=== PATIENT | male | born 1960 | race Caucasian/White ===

== ENCOUNTER 2024-10-31 13:31 | Emergency (ER) | payer OTHER, SELFPAY ==
[2024-10-31 13:38] VITALS: BP 161/88; PULSE 98; TEMP 36.8; O2SAT 98; BMI 25.7
--- OUTSIDE RECORDS SUMMARY | 2024-10-31 13:41 | XMS_ITS | Encounter Summary ---
Author Organization [facility] Address [address] [place] [address] Care Team Providers Care Field Observer Name Role Phone Alvaro Noriega MD Primary Care Provider [phone] Encounter Details Date Type Department Care Team (Late Contact Info) Description 11/24/2023 Abstract [facility] [address] [place] [address] [place] [phone] Alvaro Noriega MD [address] [place] [address] [place], [place] [id number] Social History Tobacco Use Types Packs/Day Years Used Date Smoking Tobacco: Every Day Cigarettes Smokeless Tobacco: Never Sex and Gender Information Value Date Recorded Sex Assigned at Not on file Legal Sex Male 6:46 PM EDT Gender Identity Not on file Sexual Orientation Not on file documented as of this encounter Plan of Treatment Upcoming Encounters Date Type Department Care Team (Late Contact Info) Description 11/05/2024 10:50 AM EDT Office [facility] [address] [place] [address] [place] [address] Letitia Aj MD [address] [place] [address] [place] [address] 12/18/2024 2:30 PM EDT Clinical Support [facility] [address] [place] [address] [place] [phone] Saira Murillo, [facility] [address] [facility] [place] [address] documented as of this encounter Visit Diagnoses Not on filedocumented in this encounter Care Teams Field Observer Relationship Specialty Start Date End Date Alvaro Noriega MD [address] [address] PCP - General Internal Medicine 07/12/22 documented as of this encounter
--- OUTSIDE RECORDS SUMMARY | 2024-10-31 13:41 | XMS_ITS | Clinical Summary ---
Author Organization [facility] Address [address] [place] [address] Care Team Providers Care Ship Fastener Name Role Phone Alvaro Noriega MD Primary Care Provider [phone] Allergies Active Allergy Reactions Criticality Noted Date Comments Penicillin G Unknown 11/09/2022 Medications sildenafil (Viagra) 100 MG tabletIndication s:Impotence of organic origin Take 1 tablet (100 mg) by mouth if needed for erectile dysfunction. 10 tablet 11 11/17/19 23 Active lisinopril 30 MG tabletIndication s:Essential (primary) hypertension Take 1 tablet (30 mg) by mouth Daily 100 tablet 3 02/26/20 24 Active diazePAM (Valium) 10 MG tablet TAKE 1 TABLET BY MOUTH 2 HOURS PRIOR TO THE PROCEDURE 10/20/19 25 Active albuterol HFA 90 mcg/act inhalerIndicatio ns:Chronic obstructive pulmonary disease, unspecified (HCC) INHALE 2 PUFFS EVERY 4 HOURS IF NEEDED FOR WHEEZING. 18 g 3 10/30/19 25 Active albuterol HFA 90 mcg/act inhalerIndicatio ns:Chronic obstructive pulmonary disease, unspecified (HCC) Inhale 2 puffs every 4 (four) hours if needed for wheezing 18 g 3 06/11/19 25 025 Discontinued Active Problems Problem Noted Date Diagnosed Date Alcoholism 05/22/2024 Routine health maintenance 05/22/2024 Chronic cholecystitis 11/27/2023 Fatty liver 11/27/2023 Elevated liver enzymes 11/27/2023 Bilateral hearing loss 11/16/2022 Benign essential hypertension 11/09/2022 Bursopathy, unspecified 11/09/2022 Calculus of gallbladder 11/09/2022 Chronic obstructive pulmonary disease 11/09/2022 Hyponatremia 11/09/2022 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 110 [place] [address] Alvaro Noriega MD Chronic obstructive pulmonary disease, unspecified (HCC) 10/07/2024 10:30 AM EDT Office Visit [facility] [address] [facility] 130 [place] [address] Letitia Aj MD Vertigo (Primary Dx); Asymmetric SNHL (sensorineural hearing loss); Right-sided tinnitus; Claustrophobia 10/07/2024 Bamboo flowsheet [facility] [address] [facility] [address] [place] [address] Letitia Aj MD 10/07/2024 Travel 10/02/2024 10:45 AM EDT Clinical Support [facility] [address] [place] [address] [address] [place] [address] Saira Murillo CCC-A Sensorineural hearing loss (SNHL) of both ears (Primary Dx); Tinnitus, bilateral 10/02/2024 Bamboo flowsheet [facility] [address] [facility] [address] [place] [address] Saira Murillo CCC-A from Last 3 Months Immunizations Immunization Administration Dates Next Due Influenza, injectable, quadrivalent, preservativ e free 02/14/2022 SARS-COV-2 (COVID-19) vaccin e, mRNA, spike protein, LNP, bivalent, preservative free, 30 mcg/0.3 mL dose, jordan-sucrose formulation 02/14/2022 Family History Medical History Relation Name Comments Cancer Mother Hypertension Mother Relation Name Status Comments Mother Social History Tobacco Use Types Packs/Day Years Used Date Smoking Tobacco: Every Day Cigarettes Smokeless Tobacco: Never Tobacco Cessation:Ready to Q uit: Not Asked; Counseling Given: Not Answered Alcohol Use Standard Drinks/Week Comments Yes 0 (1 standard drink = 0.6 oz pur e alcohol) occ PHQ-2 Answer Date Recorded Patient Health Questionnaire-2 Score 0 07/24/2024 Sex and Gender Information Value Date Recorded Sex Assigned at Not on file Legal Sex Male 6:46 PM EDT Gender Identity Not on file Sexual Orientation Not on file Last Filed Vital Signs Vital Sign Reading Time Taken Comments Blood Pressure 132/77 10/07/2024 10:35 AM EDT Pulse 81 07/24/2024 8:51 AM EDT Temperature - - Respiratory Rate - - Oxygen Saturation 99% 07/24/2024 8:51 AM EDT Inhaled Oxygen Concentration - - Weight 78.9 kg (174 lb) 10/07/2024 10:35 AM EDT Height 177.8 cm (5' 10 ) 10/07/2024 10:35 AM EDT Body Mass Index 24.97 10/07/2024 10:35 AM EDT Plan of Treatment Upcoming Encounters Date Type Department Care Team (Late st Contact Info) Description 11/05/2024 10:50 AM EDT Office Visit [facility] [address] [facility] 130 [place] [address] Letitia Aj MD [address] [facility] 130 [place] [address] 12/18/2024 2:30 PM EDT Clinical Support [facility] [address] [facility] 130 [place] [address] Saira Murillo, [facility] [address] [place] [address] Health Maintenance Due Date Last Done Comments CT Colonography 1962 Colonoscopy 1962 FIT 1962 FOBT 1962 Sigmoidoscopy 1962 Colorectal Cancer Screening 10/15/2023 FIT-DNA 10/15/2023 10/14/2020 Influenza Vaccine (#1) 2024 02/14/2022 Procedures Procedure Name Priority Date/Time Associated Diagnosis Comments AUDITORY FUNCTION TESTS Routine 10/02/2024 1:52 PM EDT LAB COLOGUARD COLON CANCER SCREEN Routine 10/14/2020 from Last 3 Months or Most Recently Relevant to Health Maintenance Results * Auditory function tests (10/02/2024 1:52 PM EDT) Narrative Saira Murillo, CCC-A - 10/02/2024 1:52 PM EDT Right Ear: Mild to severe sensorineural hearing loss Left Ear: Mild to moderate sensorineural hearing loss us Saira Murillo CCC-A AUDIOLOGY SERVICES ORDERA BLES Final Result * Cologuard?? colon cancer screening (10/14/2020) COLOGUARD RESULT REPORTABLE Cancelled - Order Not Applicable [facility] 10/14/2020 us [facility] MOLECULAR DIAGNOSTICS LISSET BENITEZ Final Result [facility] from Last 3 Months or Most Recently Relevant to Health Maintenance Insurance [employer] Care Teams Ship Fastener Relationship Specialty Start Date End Date Alvaro Noriega MD [address] [place] [phone] PCP - General Internal Medicine 07/12/22
--- OUTSIDE RECORDS SUMMARY | 2024-10-31 13:41 | XMS_ITS | Encounter Summary ---
Author Organization [facility] Address [address] [place] [address] Care Team Providers Care Dolphin Trainer Name Role Phone Alvaro Noriega MD Primary Care Provider Encounter Details Date Type Department Care Team (Late Contact Info) Description 10/05/2023 Orders Only [facility] [address] [facility] 110 [place] [phone] Adina Polanco LPN [address] [place] [address] Mid back pain; Chronic bilateral low back pain with right-sided sciatica Social History Tobacco Use Types Packs/Day Years Used Date Smoking Tobacco: Never Assessed Sex and Gender Information Value Date Recorded Sex Assigned at Not on file Legal Sex Male 6:46 PM EDT Gender Identity Not on file Sexual Orientation Not on file documented as of this encounter Plan of Treatment Upcoming Encounters Date Type Department Care Team (Late Contact Info) Description 11/05/2024 10:50 AM EDT Office Visit [facility] [address] [place] [address] [place] [address] Letitia Aj MD [address] [place] [place] [address] 12/18/2024 2:30 PM EDT Clinical Support [facility] [address] [place] [address] [place] [address] Saira Murillo, [facility] [address] [place] [address] documented as of this encounter Visit Diagnoses Diagnosis Mid back pain Chronic bilateral low back pain with right-sided sciatica documented in this encounter Care Teams Dolphin Trainer Relationship Specialty Start Date End Date Alvaro Noriega MD [address] [place] [address] PCP - General Internal Medicine 07/12/22 documented as of this encounter
--- OUTSIDE RECORDS SUMMARY | 2024-10-31 13:41 | XMS_ITS | Clinical Summary ---
Author Organization [employer] Address [id number] [address] [place] [address] Care Team Providers Care E Commerce Marketing Analyst Name Role Phone Alvaro Noriega MD Primary Care Provider [phone] Allergies Active Allergy Reactions Criticality Noted Date Comments Penicillins Itching,Rash Low 01/09/2017 Medications lisinopril (PRINIVIL,ZESTRI L) 30 mg tablet Take 30 mg by mouth daily. Active amLODIPine (NORVASC) 5 mg tablet Take 5 mg by mouth daily. Active diazePAM (VALIUM) 10 mg tablet Take 10 mg by mouth daily. Active tiZANidine (ZANAFLEX) 4 mg tablet Take 4 mg by mouth daily. Active albuterol (PROVENTIL HFA;VENTOLIN HFA) 90 mcg/actuation inhaler Inhale 2 puffs every 6 (six) hours as needed for wheezing. Active Active Problems No known active problems Family History Medical History Relation Name Comments Cancer Father Cancer Mother Relation Name Status Comments Father Mother Social History Tobacco Use Types Packs/Day Years Used Date Smoking Tobacco: Every Day Smokeless Tobacco: Never Alcohol Use Standard Drinks/Week Comments Yes 0 (1 standard drink = 0.6 oz pur e alcohol) 12 Childcare Answer Date Recorded Childcare Unknown 08/16/2018 Employment Answer Date Recorded Employment Unknown 08/16/2018 Hunger Screening Answer Date Recorded Within the past 12 months we worried whether our food would run out before we got money to buy more. Never True 11/20/2023 Within the past 12 months th e food we bought just didn't last and we didn't have money to get more. Never True 11/20/2023 Purpose - Life Answer Date Recorded Purpose and direction in life Unknown Sex and Gender Information Value Date Recorded Sex Assigned at Not on file Legal Sex Male 1:59 PM EDT Gender Identity Not on file Sexual Orientation Not on file Last Filed Vital Signs Vital Sign Reading Time Taken Comments Blood Pressure 159/126 11/20/2023 9:20 PM EDT Pulse 83 11/20/2023 9:39 PM EDT Temperature 36.7 C (98.1 F) 11/20/2023 6:29 PM EDT Respiratory Rate 18 11/20/2023 9:39 PM EDT Oxygen Saturation 99% 11/20/2023 9:39 PM EDT Inhaled Oxygen Concentration - - Weight 78.9 kg (174 lb) 11/20/2023 6:29 PM EDT Height 175.3 cm (5' 9 ) 11/20/2023 6:29 PM EDT Body Mass Index 25.7 11/20/2023 6:29 PM EDT Plan of Treatment Health Maintenance Due Date Last Done Comments Depression Screening 1974 Tobacco Screening 1974 Adult BMI Follow Up Plan 1980 DTaP,Tdap and Td Vaccines (1 - Tdap) 1981 Zoster (Shingles) Vaccine (1 of 2) 2012 COVID-19 Vaccine (5 - 2023-2 5 season) 2023 02/14/2022, 03/08/2021, 07/14/2020, Additional history exists Influenza Vaccine 11/04/2024 02/14/2022 Adult BMI Screening 11/19/2024 11/20/2023 Medical Devices Not on file Insurance [facility] [employer] Care Teams E Commerce Marketing Analyst Relationship Specialty Start Date End Date Alvaro Noriega MD [address] [phone] PCP - General Internal Medicine 01/04/17
--- OUTSIDE RECORDS SUMMARY | 2024-10-31 13:41 | XMS_ITS | Encounter Summary ---
Author Organization [facility] Address [address] [place] [address] Care Team Providers Care Simplex Operator Name Role Phone Alvaro Noriega MD Primary Care Provider [phone] Reason for Visit * Reason Comments Med Refill Encounter Details Date Type Department Care Team (Late Contact Info) Description 10/29/2024 Refill [facility] [address] [facility] 110 [place] [address] Alvaro Noriega MD [address] [facility] 110 [place], [place] [phone] Chronic obstructive pulmonary disease, unspecified (HCC) Social History Tobacco Use Types Packs/Day Years Used Date Smoking Tobacco: Every Day Cigarettes Smokeless Tobacco: Never Alcohol Use Standard Drinks/Week [...] Visit [facility] [address] [place] [address] [place] [address] Letitia Aj MD [address] [place] [address] [place], [place] [phone] 12/18/2024 2:30 PM EDT Clinical Support [facility] [address] [place] [address] [place] [address] Saira Murillo, [facility] [address] [place] [address] documented as of this encounter Visit Diagnoses Diagnosis Chronic obstructive pulmonary disease, unspecified (HCC) documented in this encounter Care Teams Simplex Operator Relationship Specialty Start Date End Date Alvaro Noriega MD [address] [facility] [address] [place] [address] PCP - General Internal Medicine 07/12/22 documented as of this encounter
--- OUTSIDE RECORDS SUMMARY | 2024-10-31 13:41 | XMS_ITS | Encounter Summary ---
Author Organization [facility] Address [address] [place] [address] Care Team Providers Care Digital Sales Manager Name Role Phone Alvaro Noriega MD Primary Care Provider [phone] Encounter Details Date Type Department Care Team (Late Contact Info) Description 11/10/2022 Abstract [facility] [address] [facility] 110 [place] [phone] Alvrao Noriega MD [address] [place] [address] [place], [place] [phone] Social History Tobacco Use Types Packs/Day Years Used Date Smoking Tobacco: Never Assessed Sex and Gender Information Value Date Recorded Sex Assigned at Not on file Legal Sex Male 6:46 PM EDT Gender Identity Not on file Sexual Orientation Not on file documented as of this encounter Plan of Treatment Upcoming Encounters Date Type Department Care Team ([facility] Contact Info) Description 11/05/2024 10:50 AM EDT Office Visit [facility] [address] [place] [place] [address] Letitia Aj MD [address] [place] [address] 12/18/2024 2:30 PM EDT Clinical Support [facility] [address] [place] [place] [address] Saira Murillo, [facility] [address] [place] [place] [address] documented as of this encounter Visit Diagnoses Not on filedocumented in this encounter Care Teams Digital Sales Manager Relationship Specialty Start Date End Date Alvaro Noriega MD [address] [address] PCP - General Internal Medicine 07/12/22 documented as of this encounter
--- OUTSIDE RECORDS SUMMARY | 2024-10-31 13:41 | XMS_ITS | Encounter Summary ---
Author Organization [employer] Address [id number] [address] [place] [address] Care Team Providers Care Lead Manufacturing Engineering Tech Name Role Phone Alvaro Noriega MD Primary Care Provider [phone] Encounter Details Date Type Department Care Team ([facility] st Contact Info) Description 01/12/2024 Orders Only [employer] [address] [place] [phone] Transcribe, Orders Support User Pain (Primary Dx) Social History Tobacco Use Types Packs/Day Years [...] as of this encounter Plan of Treatment Not on file documented as of this encounter Results * Ultrasound abdomen limited (11/20/2023 10:20 AM EDT) us Scanning Provider External IMG US ORDERABLES Fin al Result documented in this encounter Visit Diagnoses Diagnosis Pain- Primary Generalized pain documented in this encounter Care Teams Lead Manufacturing Engineering Tech Relationship Specialty Start Date End Date Alvaro Noriega MD [address] [facility], [facility] 110 [place] [address] PCP - General Internal Medicine 01/04/17 documented as of this encounter
--- OUTSIDE RECORDS SUMMARY | 2024-10-31 13:41 | XMS_ITS | Encounter Summary ---
Author Organization [facility] Address [address] [place] [address] Care Team Providers Care Fresh Foods Clerk Name Role Phone Alvaro Noirega MD Primary Care Provider [phone] Encounter Details Date Type Department Care Team (Late Contact Info) Description 11/03/2023 Abstract [facility] [address] [place] [place] [phone] Alvaro Noriega MD [address] [place] [place], [place] [phone] Social History Tobacco Use Types Packs/Day Years [...] [facility] [address] [place] [address] [place] [address] Letitia Aj MD [address] [place] [address] [place] [address] 12/18/2024 2:30 PM EDT Clinical Support [facility] [address] [place] [place] [phone] Saira Murillo, [facility] [address] [facility] [place] [address] documented as of this encounter Visit Diagnoses Not on filedocumented in this encounter Care Teams Fresh Foods Clerk Relationship Specialty Start Date End Date Alvaro Noriega MD [address] [address] PCP - General Internal Medicine 07/12/22 documented as of this encounter
--- NOTE | 2024-10-31 14:02 | ED_ITS ---
HPI HPI - Extremity Injury (Lower) General Chief Complaint: Extremity Injury, Lower Stated Complaint: FALL L KNEE SWELLING Time Seen by Provider: 10/31/24 13:47 Source: patient Limitations: no limitations History of Present Illness HPI Narrative: Patient presents to the ED with bilateral knee pain and abrasions after a fall yesterday. He reports tripping while crossing the street, striking his head, elbows, and both knees. He denies loss of consciousness, dizziness, or lightheadedness at the time. He was able to ambulate afterward but reports increased pain today, particularly in the left knee, making ambulation more difficult. Family called EMS for assistance, and he was transported for evaluation. Patient denies numbness, tingling, or weakness in the extremities. No pain in the ankles, feet, hips, or spine. He reports a history of hypertension, otherwise no significant medical history. He denies headache, neck pain, or other complaints. Patient smells of alcohol but is alert, oriented, not slurring speech, and does not appear clinically intoxicated. Related Data Allergies Allergy/AdvReac Type Severity Reaction Status Date / Time Penicillins Allergy Intermediate Rash Verified 10/31/24 13:38 Opioid HPI Opioid Management Most Recent Pain and Opioid Data: Last Pain Scale 9 Today, 13:38 PFSH PFSH Social History Little interest or pleasure in doing things: not at all Feeling down, depressed, or hopeless: not at all Exam Narrative Exam Narrative: * General: Alert, oriented ?3. No acute distress. Cooperative. Neuro: GCS 15. Cranial nerves II?XII grossly intact. Strength and sensation intact distally. No focal deficits. Pupils equal, round, reactive to light. Head: No scalp tenderness, no hemotympanum. No step-offs or deformities. Neck/Back: No midline cervical, thoracic, or lumbar spine tenderness. Normal range of motion. Cardiac: Regular rate and rhythm. No murmurs. Respiratory: Lungs clear to auscultation bilaterally. Normal effort. Abdomen: Soft, non-tender, nondistended. Extremities: * Knees: Abrasions noted anteriorly bilaterally. Left knee with moderate swelling around patella, right knee with mild swelling. No erythema or effusion. No ligamentous laxity (cruciate or collateral). Full range of motion with pain, strength intact against resistance. Pulses and sensation intact distally. * Elbows: Right elbow abrasion without tenderness. Full ROM without difficulty. * Ankles/feet/hips: No tenderness, deformity, or swelling. Skin: Warm, dry, abrasions as above. Constitutional Vital Signs, click to edit/add: Last Vital Signs Temp 98.3 F 10/31/24 13:38 Pulse 98 H 10/31/24 13:38 Resp 18 10/31/24 13:38 BP 161/88 H 10/31/24 13:38 Pulse Ox 98 10/31/24 13:38 Course Vital Signs Vital signs: Vital Signs Temperature 98.3 F 10/31/24 13:38 Pulse Rate 98 H 10/31/24 13:38 Respiratory Rate 18 10/31/24 13:38 Blood Pressure 161/88 H 10/31/24 13:38 Pulse Oximetry 98 10/31/24 13:38 Temperature 98.3 F 10/31/24 13:38 Pulse Rate 98 H 10/31/24 13:38 Respiratory Rate 18 10/31/24 13:38 Blood Pressure 161/88 H 10/31/24 13:38 Pulse Oximetry 98 10/31/24 13:38 MDM - Extremity Injury (Lower) MDM Narrative Medical decision making narrative: Presents to the ED with a complaint of lower extremity injury bilaterally. Apparently yesterday he was walking across the street tripped and struck his head his elbows and both knees. He got up and continued on his journey. He did not lose consciousness he did not feel lightheaded or dizzy. Patient states today he was having some difficulty ambulating due to the pain in his knees so his family member called EMS to have them help him be lifted. EMS recommended he come to the ED for evaluation. Patient denies numbness or tingling in extremities he does have abrasions anteriorly. He states the left is much more painful than the right. He does not have any tenderness his ankles feet or his hips. No tenderness in the vertebrae. No numbness or tingling in the extremit ies he is alert and oriented pupils are equally reactive patient does smell of alcohol. However he is alert and oriented not slurring his speech and does not clinically appear intoxicated. Patient denies any other medical history other than hypertension. He has no other complaints at this time. Patient has abrasions on both of his knees. He does have swelling around the kneecap mostly on the left side mild amount on the right side. He has no laxity in his ligaments cruciate or collateral. He does have good range of motion and strength against resistance. Good pulses distally good sensation distally. Heart and lung sounds are unremarkable. Elbow on the right side has an abrasion but no tenderness can move through range of motion without difficulty. Patient does not have any hemotympanum. No tenderness in the scalp. Pupils are equal and reactive. Neurologically patient is intact no headache. No cervical neck tenderness. CT of the head was negative for acute process. imaging knees no acute process. Recommend progressive weight bearing and assistive device as using now. Follow up with PCP. Keep abrasions clean and dry. OTC pain medication. Advised to Return to the ED or call 911 if experiencing: Worsening pain, swelling, or redness in your knees inability to move or bear weight on your legs. New headache, dizziness, confusion, or vomiting Vision changes or loss of consciousness Follow up with primary care provider or consumer education specialist as needed. Discharge Plan Discharge Chief Complaint: Extremity Injury, Lower Clinical Impression: Contusion of knee, left, Contusion of knee, right, Left knee sprain, Head injury, Fall Patient Disposition: Home, Self-Care Time of Disposition Decision: 16:06 Condition: Good Mode of Transportation: Private Vehicle Print Language: Japanese Instructions: Knee Sprain (ED), Head Injury (ED), Swollen Knee Joint (ED), Fall Prevention (ED) Additional Instructions: You were evaluated in the ED for a fall resulting in injuries to your head and both knees. Imaging, including CT scan of the head and X-rays of the knees, were normal, and no fractures or acute injuries were found. Home Care: * Rest and elevate your knees as needed. Apply ice to swollen areas 15?20 minutes every 2?3 hours for the first 24?48 hours. * You may take [id number] pain medication, such as acetaminophen or ibuprofen, as directed on the label. * Keep abrasions clean and dry. Use mild soap and water; apply a clean bandage if needed. * Gradually resume normal activity as tolerated. When to Seek Care: Return to the ED or call 911 if you experience: * Worsening pain, swelling, or redness in your knees * Inability to move or bear weight on your legs * New headache, dizziness, confusion, or vomiting * Vision changes or loss of consciousness Follow-Up: * Follow up with your primary care provider or consumer education specialist as needed. Referrals: STEPHANIE LEE [Primary Care Provider, Internal Medicine] - 1 week Discharge Date/Time: 10/31/24 16:24
--- NOTE | 2024-10-31 14:31 | PC.NURSE ---
Scab present to right and left knee, skin to bilateral legs pink and warm and pulses present.
[2024-10-31 16:23] VITALS: BP 145/88; PULSE 67; O2SAT 98
== END 2024-10-31 16:24 | disposition home or self-care (01) ==
PROVIDERS: Emergency Provider Emergency Medicine; PCP Internal Medicine
DX: S80.02XA Contusion of left knee, initial encounter (principal); S80.01XA Contusion of right knee, initial encounter; S80.212A Abrasion, left knee, initial encounter; S80.211A Abrasion, right knee, initial encounter; W01.0XXA Fall on same level from slipping, tripping and stumbling without subsequent striking against object, initial encounter; Y93.89 Activity, other specified; Y92.414 Local residential or business street as the place of occurrence of the external cause; S50.311A Abrasion of right elbow, initial encounter; S83.92XA Sprain of unspecified site of left knee, initial encounter; S09.90XA Unspecified injury of head, initial encounter
CPT/HCPCS: 70450; 73564; 99284